=== PATIENT | male | born 1970 | race Caucasian/White ===

== ENCOUNTER → 2025-01-08 15:14 | Outpatient (REF) | payer OTHER, SELFPAY | LOC: HWRAD 15:14 | PROVIDERS: ATTENDING PHYSICIAN Chiropractor; FAMILY PHYSICIAN Family Medicine | DX: S13.4XXA Sprain of ligaments of cervical spine, initial encounter (principal); M54.2 Cervicalgia; G44.86 Cervicogenic headache; S23.3XXA Sprain of ligaments of thoracic spine, initial encounter; S33.5XXA Sprain of ligaments of lumbar spine, initial encounter; M54.16 Radiculopathy, lumbar region; S33.6XXA Sprain of sacroiliac joint, initial encounter; M46.1 Sacroiliitis, not elsewhere classified; M25.60 Stiffness of unspecified joint, not elsewhere classified; M62.838 Other muscle spasm | CPT/HCPCS: 72052; 72114; 72170 ==